=== PATIENT | female | born 1965 | race Caucasian/White ===

== ENCOUNTER 2016-07-02 12:45 | Emergency (ER) | payer OTHER ==
[~2016-07-02] VITALS: Ht 170.2 cm; Wt 104.5 kg
[~2016-07-02 12:45] MED LIST: ADVAI100I PO; AMLO5TAB22 PO; ASPI81TA82 PO; ESTR1TAB PO; LAMO200T PO; LORA1TAB PO; OMEP20TA PO; ORPH100T PO; WELL200T PO
[2016-07-02 12:52] VITALS: BP 141/81; PULSE 85; RESP 20; TEMP 98.9; O2SAT 99
--- NOTE | 2016-07-02 13:39 | PD ---
HPI Chief Complaint: Eye Problems/Injury Time Seen by Provider: 13:15 Travel History International Travel<30 days: No Contact w/Intl Traveler<30days: No Traveled to known affect area: No History of Present Illness HPI Patient is a 51-year-old female presenting to the emergency department for evaluation of left eye irritation. Patient states that she instead of using her saline eyedrops she used her contact lens cleanser in her left eye. Patient went to the urgent care center where her eye was irrigated but she was advised to come to emergency department for evaluation. Patient states her eye feels irritated, she denies any visual changes at this time. PFSH Past Medical History Asthma: Yes Bipolar Disorder: Yes Anxiety: Yes Depression: Yes Heart Rhythm Problems: No Cardiac Catheterization: No Cardiovascular Problems: No High Cholesterol: No Congestive Heart Failure: No Cerebrovascular Accident: Yes Diabetes: No Hypertension: Yes Myocardial Infarction: No ?: Not Past Surgical History Appendectomy: Yes Cholecystectomy: Yes Coronary Artery Bypass Graft: No Hysterectomy: Yes Thoracic Surgery: Yes (left breast mass) Tonsillectomy: Yes Social History Alcohol Use: No Tobacco Use: No Substance Use: No Allergies-Medications (Allergen,Severity, Reaction): Coded Allergies: Sulfa (Verified Allergy, Severe, Nausea/Vomiting, 07/02/16) DIARRHEA Uncoded Allergies: SURGICAL TAPE (Allergy, Mild, 10/30/06) Reported Meds & Prescriptions Reported Meds & Active Scripts Active Erythromycin Opth Oint 5 Mg/Gm Oint 1 Applic LEFT EYE QID Percocet (Oxycodone-Acetaminophen) 5-325 mg Tab 1 Tab PO Q4H PRN Norflex (Orphenadrine Citrate) 100 Mg Demarcus 100 Mg PO BID Reported Lorazepam 1 Mg Tab 1 Mg PO TID Estradiol 1 Mg Tab 1 Mg PO DAILY Amlodipine Besylate 5 mg (Amlodipine Besylate) 5 Mg Tab 1 Tab PO DAILY Lamictal (Lamotrigine) 200 Mg Tab 400 Mg PO DAILY Advair Diskus 100/50 (Salmeterol Xinafoate/Fluticasone) Fluticasone/Salmeterol 100/50 Inh 1 Puff PO BID Aspir-81 (Aspirin) 81 Mg Tab 81 Mg PO DAILY Omeprazole 20 mg (Omeprazole) 20 Mg Tab 20 Mg PO DAILY Wellbutrin Sr (Bupropion Hcl) 200 Mg Tab 300 Mg PO DAILY Review of Systems Except as stated in HPI: all other systems reviewed are Neg Eyes: Positive: Redness, Pain (irritated), Tearing, Other (irritation) Physical Exam Narrative GENERAL: Well-nourished, well-developed patient. SKIN: Focused skin assessment warm/dry. HEAD: Normocephalic. EYES: No scleral icterus. Moderate injection to the left eye, extraocular movements are intact. Pupils are equal, round, reactive. PH at 8 upon arrival , prior to irrigation. NECK: Supple, trachea midline. No JVD or lymphadenopathy. CARDIOVASCULAR: Regular rate and rhythm without murmurs, gallops, or rubs. RESPIRATORY: Breath sounds equal bilaterally. No accessory muscle use. GASTROINTESTINAL: Abdomen soft, non-tender, nondistended. MUSCULOSKELETAL: No cyanosis, or edema. BACK: Nontender without obvious deformity. No CVA tenderness. Data Data Last Documented VS Vital Signs Date Time Temp Pulse Resp B/P Pulse Ox O2 Delivery O2 Flow Rate FiO2 07/02/16 12:52 98.9 85 20 141/81 99 Orders Eye Irrigation (07/02/16 13:05) Proparacaine 0.5% Opth Soln (Alcaine 0.5 (07/02/16 15:00) Eye Irrigation (07/02/16 14:56) [facility] Medical Decision Making Medical Screen Exam Complete: Yes Emergency Medical Condition: Yes Interpretation(s) Vital Signs Date Time Temp Pulse Resp B/P Pulse Ox O2 Delivery O2 Flow Rate FiO2 07/02/16 12:52 98.9 85 20 141/81 99 Differential Diagnosis Chemical burn versus iritis versus conjunctivitis versus other Narrative Course Patient is a 51-year-old female that presented to the emergency department for evaluation of left eye irritation after using her contact lens cleanser in her eye instead of the saline solution. Contact lens cleanser is with patient and the active ingredient is peroxide. PH was tested prior to irrigation with a Devan lens. Initial pH was 8, patient receiving first liter of saline now, will reassess pH level again after infusion is complete. Discussed with patient that may need more than 1 L in order to have her age level returned to normal. PH reassessed 20 minutes after first liter was completed pH continues to be around 8. Second liter ordered. Proparacaine ordered. Patient has appointment with Dr. Mak Cesar in the morning. RN notified poison control who recommended eye irrigation and assessing patient' s pH after irrigation. Fluorescin eye exam performed, there appears to be a small abrasion, less than 1 mm to the left eye over the iris. No dendritic lesions, ulcerations noted. PH reassessed after second liter given the ER at 8. She had 2 L at the urgent care center prior to arrival per her report, for total [address] Mak Cesar who recommended erythromycin ointment and follow-up in the office in the morning. Patient will also be given a short course of oral pain medications. Patient verbalized understanding of instructions for need for follow-up, she was advised to return to emergency department for any new or worsening symptoms. Patient is stable for discharge. Diagnosis Primary Impression: Irritation of left eye Additional Impression: Chemical burn of eye or adnexa Qualified Code: T26.92XA - Chemical burn of eye or adnexa, left, initial encounter Referrals: Deysi Cesar MD 1 day Call the office in the morning to schedule a follow-up appointment Additional Instructions: Follow-up with Dr. Cesar in the morning Use medication as directed Return to emergency department for any new or worsening symptoms Med/Other Pt SpecificInfo: Prescription(s) given Scripts Erythromycin Opth Oint 5 Mg/Gm Oint1 Applic LEFT EYE QID #1 TUBE Ref 0 Prov:Kailyn Wyatt 07/02/16 Oxycodone-Acetaminophen (Percocet)5-325 mg Tab1 Tab PO Q4H PRN (PAIN) #12 TAB Ref 0 Prov:Stiven Rios MD 07/02/16 Disposition: 01 DISCHARGE HOME Condition: Stable Kailyn Wyatt Jul 02, 2016 13:39
[2016-07-02] MEDS ORDERED: PROPARACAINE HCL 0.5% OPHT SOLN 15 ML BTL LEFT EYE ONE (15:00)
[2016-07-02] MEDS ORDERED: PERC5TAB12 PO (17:28)
[2016-07-02] MEDS ORDERED: ERYTOIN10 LEFT EYE (17:43)
[2016-07-02] MEDS ORDERED: ERYTHROMYCIN 0.5% OPTH OINT 3.5 GM TUBO LEFT EYE ONE (17:45)
[2016-07-02] MEDS ORDERED: ERYTHROMYCIN 0.5% OPTH OINT 1 GM TUBO LEFT EYE ONE (18:00)
[2016-07-03] MEDS ORDERED: ATOR1TAB18 PO (10:36)
[2016-07-03] MEDS ORDERED: BUSP10TA PO (10:36)
[2016-07-03] MEDS ORDERED: ASPI325T PO (10:36)
[2016-07-03] MEDS ORDERED: BUPR300T PO (10:36)
[2016-07-03] MEDS ORDERED: LISI20TA PO (10:36)
[2016-07-03] MEDS ORDERED: LAMO200T PO (10:36)
[2016-07-03] MEDS ORDERED: AMLO5TAB2 PO (10:36)
[2016-07-03] MEDS ORDERED: OMEP20TA PO (10:36)
== END 2016-07-02 18:03 | disposition home or self-care (01) ==
LOC: NETRI 12:45
DX: T49.5X1A Poisoning by ophthalmological drugs and preparations, accidental (unintentional), initial encounter (principal); T26.92XA Corrosion of left eye and adnexa, part unspecified, initial encounter
CPT/HCPCS: 99283